=== PATIENT | male | born 1965 | race Asian ===

== ENCOUNTER 2017-03-14 12:39 | Day surgery (SDC) | payer OTHER ==
[~2017-03-14] VITALS: Ht 167.6 cm; Wt 75.3 kg
[2017-03-14 13:55] VITALS: Ht 167.6 cm; Wt 75.3 kg
[2017-03-14 14:53] VITALS: BP 129/77; PULSE 81; RESP 18
[2017-03-14] MEDS ORDERED: ALLOPURINOL PO (17:12)
[2017-03-14] MEDS ORDERED: GEMFIBROZIL PO (17:12)
[2017-03-14] MEDS ORDERED: SIMVASTATIN PO (17:12)
[2017-03-14] MEDS ORDERED: LISINOPRIL PO (17:12)
[2017-03-14] MEDS ORDERED: AMLODIPINE PO (17:12)
[2017-03-14] MEDS ORDERED: FENTAnyl 50 MCG/ML VIAL ONE (17:16)
[2017-03-14] MEDS ORDERED: MIDAZOLAM 1 MG/ML 2 ML INJ ONE ×2 (17:16)
--- NOTE | 2017-03-14 17:22 | OPPN ---
Date/Time of Note Date/Time of Note DATE: 03/14/17 TIME: 17:19 Proc Note GI Procedure Date 03/14/17 Indication: other (CRC screening) Pre-procedure Diagnosis CRC screening Post-procedure Diagnosis Impression: 3 mm polyp rectum. Ablated Moderate-sized internal hemorrhoids. Otherwise normal colonoscopy to cecum. Plan: Follow up as scheduled] High fiber diet Annual hemoccult stool testing [Review pathology] [Surveillance colonoscopy in 5-10 years pending review pathology . Procedure Performed: Colonoscopy Surgeon ROSALIO LEW MD See signature line Ged Preparation Teacher none Anesthesia Type: moderate sedation (Versed 4 mg/fentanyl 75 mcg) Tourniquet Time none EBL none Transfusion required none Biopsy 1: None Grafts/Implants Rectal polyp Tubes/Drains none Complication(s) none Disposition: home Procedure Description After informed consent, with the patient/relatives understanding the procedure, its indications and potential risks and complications, including but not limited to: Allergic reaction, bleeding, perforation, infection, and after all pertinent questions were answered to the patient's satisfaction, the patient/ relatives signed the witnessed informed consent. Following this, premedication was administered slowly IV push under careful cardiovascular and respiratory monitoring with pulse OX[employer], automatic blood pressure, and grinder watch parts. Once the sedative effect was achieved, the patient was placed in the left lateral decubitus position, digital rectal examination was performed. The colonoscope was then introduced and advanced under visual control throughout all segments of the colon including: the rectum, sigmoid, descending colon, splenic flexure, transverse colon, hepatic flexure, ascending colon and finally reaching the cecum which was clearly identified by transillumination, finger indentation and the ileocecal valve. Careful examination of the mucosa of the lower gastrointestinal tract both on insertion as well as withdrawal of the instrument disclosed the following findings: PREPARATION QUALITY: [Adequate], RECTAL EXAM: The anorectal area was visualized examined and digital rectal examination performed with the following findings: No evidence of perirectal disease, no masses. COLONIC MUCOSA: The mucosa of all segments of the colon was carefully examined and showed the following findings: 3 mm polyp in the rectum. Ablated. Moderate-sized internal hemorrhoids. Otherwise the examined mucosa appears within normal limits. There is no evidence of inflammatory changes, diverticular formation, other polyps or neoplasms, vascular malformation, or any other abnormality. The instrument was then withdrawn, the patient tolerated the procedure well and was transferred out of the Endoscopy Suite awake and in good condition to continue recovery under observation. Copies To: CC: ROSALIO LEW MD, MORDO MD Mar 14, 2017 17:22
[2017-03-14 17:25] VITALS: BP 106/67; PULSE 77; RESP 16
== END 2017-03-14 18:10 | disposition home or self-care (01) ==
LOC: GIL 12:39
PROVIDERS: ATTEND Internal Medicine Gastroenterology
DX: Z12.11 Encounter for screening for malignant neoplasm of colon (principal); K62.1 Rectal polyp; K64.8 Other hemorrhoids; I10 Essential (primary) hypertension; E78.00 Pure hypercholesterolemia, unspecified
CPT/HCPCS: 45380; 88305; J2250; J3010; Z7610